=== PATIENT | male | born 1980 | race African-American/Black ===

== ENCOUNTER 2023-12-29 18:35 | Emergency (ER) | payer BC, SELFPAY ==
[2023-12-29 18:35] VITALS: BMI 29.0
[2023-12-29 18:48] VITALS: BP 147/90
[2023-12-29 19:04] LABS: % Basophils 0.5 % (0-2); % Immature Granulocytes 0.5 % (0-0.5); % Lymphocytes 14.8 % (20.5-51.1); % Neutrophils 78.2 % (42.2-75.2); Absolute Basophils 0.1 10^3/uL (0-0.2); Absolute Eosinophils 0.1 10^3/uL (0-0.7); Absolute Immature Granulocytes 0.1 10^3/uL (0-0.05); Absolute Monocytes 0.7 10^3/uL (0.1-0.6); Absolute Neutrophils 10.4 10^3/uL (1.4-6.5); Hematocrit 41.3 % (39.0-52.0); Hemoglobin 14.5 g/dL (13.0-18.0); Mean Corp Hgb Conc. 35.1 g/dL (33.0-37.0); Mean Corpuscular Hgb 30.5 pg (27.0-31.0); Mean Corpuscular Volume 86.8 fL (80.0-94.0); Mean Platelet Volume 9.9 fL (7.4-10.4); Nucleated Red Blood Cells % 0 % (-); Platelet Count 225 10^3/uL (130-400); Red Blood Cell Count 4.76 10^6/uL (4.70-6.10); Red Cell Dist. Width 12.8 % (11.5-14.5); White Blood Cell Count 13.3 10^3/uL (4.8-10.8)
[2023-12-29 19:20] LABS: ALT (SGPT) 46 U/L (0-50); AST (SGOT) 37 U/L (17-59); Albumin 4.5 g/dl (3.5-5.0); Alkaline Phosphatase 81 U/L (38-126); Blood Urea Nitrogen 19 mg/dl (9-20); Calcium 9.9 mg/dl (8.4-10.2); Carbon Dioxide 22 mmol/L (22-30); Chloride 108 mmol/L (98-107); Glucose 102 mg/dl (70-99); Potassium 4.3 mmol/L (3.5-5.1); Sodium 139 mmol/L (135-145); Total Bilirubin 0.5 mg/dl (0.2-1.3); Total Protein 7.6 g/dl (6.3-8.2); eGFR > 60.00
[2023-12-29] MEDS: TORADOL 30 MG IM (21:33)
[2023-12-29 21:36] VITALS: BP 142/76
[2023-12-29 22:04] VITALS: BP 152/96
--- NOTE | 2023-12-29 22:19 | ED.GENMED ---
History of Present Illness
General
Chief Complaint: Male Genito-Urinary Symptoms
Source: patient and family
Exam Limitations: none
Time Seen by Provider: 12/29/23 22:09
Nursing documentation reviewed up to this point in time: agreed with
Travel History
Have you had any contact with someone who has COVID-19?: No
Do you have any symptoms of coronavirus? Fever > 100 degrees, chills, cough, shortness of breath, sore throat, loss of taste or smell, muscle aches, or headache?: No
History of Present Illness
History of Present Illness:
43-year-old male 1 prior kidney stone presents with acute onset of right flank pain into his right groin just prior to arrival no nausea or vomiting no fever chills he is a smoker nondrinker no prior abdominal surgeries
Past History
Past History
ED Past Medical History: Other (Kidney stone)
Social History
Tobacco: Smoker
Alcohol: None
Drug: None
Living: with family
Employment: Employed
Family History
Family History: Other (Noncontributory)
Review of Systems
Review of Systems
All Other Systems: Not applicable
Constitutional: Denies fever or fatigue
Respiratory: Reports no symptoms
Cardiac: Reports no symptoms
ABD/GI: Reports abdominal pain
: Reports flank pain; Denies dysuria, incontinence or bleeding
Skin: Reports no symptoms
Phy Exam
Physical Exam
Physical Exam:
Physical Exam
General: no apparent distress, not acutely ill
Neck: No jaundice
Heart: s1/s2 regular rate and rhythm, no murmur. equal radial pulses.
Lungs: no acute respiratory distress. clear bilaterally
Abdomen: Right CVA tender no anterior
Neuro: alert and oriented. no focal neurological deficits
Skin: no rash
Psychiatric: well kept. interactive and cooperative
Extremities: no edema.
Course
Orders/Labs/Results
Orders:
Orders
12/29/23 18:59
CBC/With Diff [Complete Blood Count/With Diff] Urgent
Comprehensive Metabolic Panel Urgent
12/29/23 21:06
Urinalysis Urgent
Date Specimen was Collected: 12/29/23
Time Specimen was Collected: 21:06
12/29/23 21:31
Ketorolac [Toradol] 30 mg .ROUTE .STK-MED ONE
12/29/23 21:33
Ketorolac [Toradol] 30 mg IM NOW STA
12/29/23 23:59
HYDROmorphone [Dilaudid] 1 mg IV NOW STA
Ondansetron Injectable [Zofran] 4 mg IV NOW STA
12/30/23 00:09
Ondansetron Injectable [Zofran] 4 mg .ROUTE .STK-MED ONE
12/30/23 00:15
CT Abd/pel Without Iv Or Oral Urgent
Reason For Exam: right flakn pain
Abnormal Lab Results
12/29/23
18:59
WBC 13.3 H 10^3/uL
(4.8-10.8)
Abs Immat Gran (auto) 0.1 H 10^3/uL
(0-0.05)
Absolute Neuts (auto) 10.4 H 10^3/uL
(1.4-6.5)
Absolute Monos (auto) 0.7 H 10^3/uL
(0.1-0.6)
Neutrophils % 78.2 H %
(42.2-75.2)
Lymphocytes % 14.8 L %
(20.5-51.1)
Chloride 108 H mmol/L
(98-107)
Glucose 102 H mg/dl
(70-99)
12/29/23 18:59
12/29/23 18:59
Vital Signs
Initial and Last Documented VS:
Initial Vital Signs
Temp Pulse Resp BP Pulse Ox
98.2 F 80 18 147/90 100
12/29/23 18:48 12/29/23 18:48 12/29/23 18:48 12/29/23 18:48 12/29/23 18:48
Last Documented Vital Signs
Temp Pulse Resp BP Pulse Ox
98.2 F 64 19 141/82 96
12/29/23 18:48 12/29/23 23:45 12/29/23 23:45 12/29/23 23:00 12/29/23 23:45
MDM/Problems Addressed
Differential Diagnosis Includes:
Stone UTI muscle strain doubt AAA
MDM/Problems Addressed:
Right flank
Chronic conditions affecting care:
Kidney stone
*Radiology
Radiology exam reviewed: preliminary read by ED provider
*Critical Care Note
Total Time (30-74mins, 75-104mins- exclusive of procedures): Not Applicable
Update Note
Update Note:
[address] report noted urine pending
ED Attending Note
-
Portions of this chart may have been created with voice recognition software.� Occasional wrong word or��sound alike� substitutions may have occurred due to the inherent limitations of voice recognition software.
Discharge Plan
Departure
Prescriptions:
No Action
tamsulosin 0.4 MG capsule
0.4 mg PO DAILY Qty: 10 0RF
ondansetron 4 MG tablet,disintegrating
4 mg PO TIDPRN PRN (Reason: nausea/vomiting) Qty: 10 0RF
hydrocodone-acetaminophen [Vicodin] 1 EACH tablet
1 ea PO Q4HPRN PRN (Reason: pain) Qty: 15 0RF
Referrals:
NONE,* [Family Provider] -
Interventions
Interventions:
*Risk Screen - Suicide Last Done: 12/29/23 18:48
*General Assessment Last Done: 12/29/23 18:48
*Neglect/Abuse Screening Last Done: 12/29/23 18:48
ED- Fall Risk Assessment Last Done: 12/29/23 22:07
*ED COVID-19 Vaccine History Last Done: 12/29/23 18:48
ED-Male Genitourinary Assessment Last Done: 12/29/23 22:07
Discharge Date and Time
Print Language: HAITIAN
[2023-12-29 23:00] VITALS: BP 141/82
[2023-12-30] VITALS: BP 155/92
[2023-12-30] MEDS: ZOFRAN 4 MG IV (00:03)
[2023-12-30] MEDS: DILAUDID 1 MG IV (00:04)
[2023-12-30 01:00] VITALS: BP 126/71
[2023-12-30 01:18] LABS: Urine Albumin Negative (Neg - Trace); Urine Bilirubin 1+ (Negative); Urine Character Clear (Clear); Urine Color Yellow; Urine Glucose Negative (Negative); Urine Ketone Trace (Negative); Urine Leukocyte Negative (Negative); Urine Nitrite Negative (Negative); Urine Occult Blood 2+ (Negative); Urine Urobilinogen Negative (Neg - 1+)
[2023-12-30 01:47] LABS: Urine Bacteria Few (Negative); Urine Mucus Moderate; Urine Red Blood Cell 30-40 /HPF (0-2)
[2023-12-30] MEDS: TORADOL 30 MG IV (01:50)
== END 2023-12-30 01:58 | disposition home or self-care (01) ==
LOC: EMR 18:35
PROVIDERS: Emergency Medicine; EMERGENCY PHYSICIAN Emergency Medicine
DX: N20.0 Calculus of kidney (principal); F17.200 Nicotine dependence, unspecified, uncomplicated; Z87.442 Personal history of urinary calculi
CPT/HCPCS: 99284; 96374; 96375 ×2; 96372; 74176; 80053; 81003; 81015; 85025